=== PATIENT | male | born 1995 | race Two or more races ===

== ENCOUNTER 2016-06-11 12:29 | Emergency (ER) | payer OTHER ==
[2016-06-11 13:28] VITALS: BP 120/67; PULSE 78; TEMP 98.5; BMI 19.3
[2016-06-11] MEDS ORDERED: AMOXICILLIN 500 MG CAPSULE (FP) PO ONE (14:24)
[2016-06-11] MEDS ORDERED: AMOXICILLIN 250 MG CAPSULE ONE (14:30)
--- NOTE | 2016-06-11 14:30 | PDOC ---
History of Present Illness - General Chief Complaint: Edema Stated Complaint: GUM INFECTION, SWOLLEN FACE Time Seen by Provider: 06/11/16 14:20 History Source: Patient Exam Limitations: No Limitations - History of Present Illness Initial Comments: 06/11/16 14:27 20 yr male with c/o left facial swelling for 3 days started with toothache 3 days ago. no fever no chills, no ear pain or headache. Pt has appointment tommorow with the dentist. Severity: Yes: moderate Location: reports: face (left side of face, swelling ) Past History - Past Medical History Allergies/Adverse Reactions: Allergies Allergy/AdvReac Type Severity Reaction Status Date / Time No Known Allergies Allergy Verified 06/11/16 13:28 Home Medications: Ambulatory Orders Ibuprofen 800 mg PO QID PRN #20 tablet 06/11/16 Penicillin V Potassium [Pen Vee K -] 500 mg PO QID #28 tablet 06/11/16 Other medical history: PT DENIES MECICAL HX - Psycho/Social/Smoking Cessation Hx Suicidal Ideation: No Smoking History: Never smoked Hx Alcohol Use: No Drug/Substance Use Hx: No Review of Systems - Review of Systems Able to Perform ROS?: Yes Is the patient limited Danish proficient: No Constitutional: No: Symptoms Reported HEENTM: Yes: Symptoms Reported, Dental Problems, Mouth Swelling Respiratory: No: Symptoms reported Cardiac (ROS): No: Symptoms Reported ABD/GI: No: Symptoms Reported : No: Symptoms Reported *Physical Exam - Vital Signs Last Vital Signs Temp Pulse Resp BP Pulse Ox 98.5 F 78 16 120/67 97 06/11/16 13:26 06/11/16 13:26 06/11/16 13:26 06/11/16 13:26 06/11/16 13:26 - Physical Exam General Appearance: Yes: Nourished, Appropriately Dressed HEENT: positive: EOMI, SHEMAR, Normal ENT Inspection, TMs Normal, Pharynx Normal, Other (swelling noted left cheek , gum tenderness upper left side multiple poor dentition) Neck: negative: Tender Respiratory/Chest: positive: Lungs Clear, Normal Breath Sounds. negative: Chest Tender Cardiovascular: positive: Regular Rhythm, Regular Rate Medical Decision Making - Medical Decision Making 06/11/16 14:30 cc: left side facial swelling gum tenderness, tooth tender no abscess appreciated will give amoxicillin motrin 800mg every 6hrs for pain follow with your dentist tomorrow as planned 06/11/16 14:38 *DC/Admit/Observation/Transfer Diagnosis at time of Disposition: Infected tooth - Discharge Dispostion Disposition: HOME Condition at time of disposition: Good - Prescriptions Prescriptions: Ibuprofen 800 mg PO QID PRN #20 tablet PRN Reason: Pain Penicillin V Potassium [Pen Vee K -] 500 mg PO QID #28 tablet - Patient Instructions Additional Instructions: take the antibioitc as directed for 10 days take motrin as directed for pain apply warm compress to your face every 2-3hrs for 20 minutes gargle with warm salt water 4-5 times a day soft foods room temperature food and drink
== END 2016-06-11 14:49 | disposition home or self-care (01) ==
LOC: JERFT 12:29
DX: K08.89 Other specified disorders of teeth and supporting structures (principal)
CPT/HCPCS: 99281-25

== ENCOUNTER 2019-05-07 08:43 | Emergency (ER) | payer OTHER ==
[2019-05-07 08:55] VITALS: BP 129/68; PULSE 87; TEMP 98.7; BMI 19.3
--- NOTE | 2019-05-07 09:22 | PDOC ---
History of Present Illness - General Chief Complaint: Nasal Bleeding Stated Complaint: NASAL BLEED Time Seen by Provider: 05/07/19 09:08 - History of Present Illness Initial Comments: 05/07/19 09:16 CHIEF COMPLAINT: nosebleed HISTORY OF PRESENT ILLNESS: 23 yo M with no PMH [facility] with c/o nosebleed. 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 No recent travel or sick contacts. PAST MEDICAL HISTORY: Denies past medical history FAMILY HISTORY: Denies SOCIAL HISTORY:Denies tobacco, alcohol, illicit drug use. SURGICAL HISTORY: Denies ALLERGIES: No known drug allergies REVIEW OF SYSTEMS General/Constitutional: Denies fever or chills. Denies weakness, weight change. HEENT: Nosebleed to left nostril. denies change in vision. Denies ear pain or discharge. Denies sore throat. Cardiovascular: Denies chest pain or shortness of breath. Respiratory: Denies cough, wheezing, or hemoptysis. Gastrointestinal: Denies nausea, vomiting, diarrhea or constipation. Denies rectal bleeding. Genitourinary: Denies dysuria, frequency, or change in urination. Musculoskeletal: Denies joint or muscle swelling or pain. Denies neck or back pain. Skin and breasts: Denies rash or easy bruising. Neurologic: Denies headache, vertigo, loss of consciousness, or loss of sensation. Psychiatric: Denies depression or anxiety. PHYSICAL EXAM General Appearance: Well-appearing, appropriately dressed. No apparent distress , no intoxication. HEENT: Dried blood to left nare. No active bleeding. EOMI, PERRLA, normal ENT inspection, normal voice, TMs normal, pharynx normal. No conjunctival pallor. No photophobia, scleral icterus. Neck: Supple. Trachea midline. No tenderness, rigidity, carotid bruit, stridor , lymphadenopathy, or thyromegaly. Respiratory/Chest: Lungs CTAB. No shortness of breath, chest tenderness, respiratory distress, accessory muscle use. No crackles, rales, rhonchi, stridor , wheezing, dullness Cardiovascular: RRR. S1, S2. No JVD, murmur, bradycardia, tachycardia. Vascular Pulses: Dorsalis-Pedis (R): 2+, Dorsalis-Pedis (L): 2+ Gastrointestinal/Abdominal: Normal bowel sounds. Abdomen soft, non-distended. No tenderness or rebound tenderness. No organomegaly, pulsatile mass, guarding , hernia, hepatomegaly, splenomegaly. Lymphatic: No adenopathy, tenderness. Musculoskeletal/Extremities: Normal inspection. FROM of all extremities, normal capillary refill. Pelvis Stable. No CVA tenderness. No tenderness to extremities, pedal edema, swelling, erythema or deformity. Integumentary: Appropriate color, dry, warm. No cyanosis, erythema, jaundice or rash Neurologic: customer resource specialist II-XII intact. Fully oriented, alert. Appropriate mood/affect. Motor strength 5/5. No appreciable EOM palsy, facial droop or sensory deficit. Past History - Past Medical History Allergies/Adverse Reactions: Allergies Allergy/AdvReac Type Severity Reaction Status Date / Time No Known Allergies Allergy Verified 05/07/19 08:53 Home Medications: Ambulatory Orders Sodium Chloride Nasal [place] [[place] Nasal [place] -] 1 spray NS Q4H #1 bottle 05/07/19 COPD: No - Immunization History Immunization Up to Date: Yes - Psycho Social/Smoking Cessation Hx Smoking History: Never smoked Information on smoking cessation initiated: No Hx Alcohol Use: No Drug/Substance Use Hx: No *Physical Exam - Vital Signs Last Vital Signs Temp Pulse Resp BP Pulse Ox 98.7 F 87 16 129/68 100 05/07/19 08:53 05/07/19 08:53 05/07/19 08:53 05/07/19 08:53 05/07/19 08:53 Medical Decision Making - Medical Decision Making 05/07/19 09:22 23 yo M with no PMH [facility] with c/o nosebleed. -Saline drops Referral to ENT. Advised patient to take medication as prescribed and follow up with ENT. Advised patient of signs and symptoms for return to ED. Patient verbalized understanding and agrees to plan. Discharge - Discharge Information Problems reviewed: Yes Clinical Impression/Diagnosis: Epistaxis Condition: Stable Disposition: HOME - Admission No - Additional Discharge Information Prescriptions: Sodium Chloride Nasal [place] [[place] Nasal [place] -] 1 spray NS Q4H #1 bottle - Follow up/Referral Referrals: Víctor Stringer MD [Staff Physician] - - Patient Discharge Instructions Patient Printed Discharge Instructions: DI for Nosebleed - Post Discharge Activity
== END 2019-05-07 09:28 | disposition home or self-care (01) ==
LOC: JERFT 08:43
DX: R04.0 Epistaxis (principal)
CPT/HCPCS: 99283-25